=== PATIENT | female | born 1945 | race Caucasian/White ===

== ENCOUNTER → 2017-04-09 | Outpatient (CLI) | payer OTHER | END | disposition home or self-care (01) | DX: M16.11 Unilateral primary osteoarthritis, right hip (principal); R26.2 Difficulty in walking, not elsewhere classified; M25.551 Pain in right hip; M25.651 Stiffness of right hip, not elsewhere classified; M62.81 Muscle weakness (generalized); Z74.1 Need for assistance with personal care | CPT/HCPCS: 97150 GO; 97161 GP; 97165 GO; 97530 GP; G8978 GP; G8979 GP; G8980 GP; G8987 GO; G8988 GO; G8989 GO ==

== ENCOUNTER 2017-04-28 22:18 | Inpatient (IN) | payer OTHER ==
[~2017-04-28] VITALS: Ht 167.6 cm; Wt 66.0 kg
[~2017-04-28 22:18] MED LIST: MESTINON180 MG PO; MESTINON60 MG PO; SYSTANE BALANCE10 ML BOTH EYES; TRAZODONE HCL50 MG PO; ZOLOFT100 MG PO
[2017-04-29 05:57] VITALS: BP 160/71
[2017-04-29 09:56] LABS: HEMATOCRIT 37.8 % (36.0-46.0); MCH 30.4 PG (29.0-34.0); MCV 98.2 FL (83-99); PLATELET COUNT 192 K/uL (156-360); RBC DIS.WIDTH-CV 12.9 % (11.8-14.6); RBC DIS.WIDTH-SD 45.9 % (39-53); RED BLOOD COUNT 3.85 M/uL (3.80-5.20); WHITE BLOOD COUNT 8.5 K/uL (4.1-10.2)
[2017-04-29 09:57] LABS: HEMOGLOBIN 11.7 G/DL (11.9-15.5)
[2017-04-29 10:48] VITALS: BP 169/74
[2017-04-29 16:08] VITALS: BP 148/68
[2017-04-29 20:09] VITALS: BP 176/81
[2017-04-29 20:12] VITALS: BP 176/81
[2017-04-30] VITALS: BP 169/74
[2017-04-30 03:48] VITALS: BP 176/84
[2017-04-30 05:33] LABS: HEMATOCRIT 34.2 % (36.0-46.0); HEMOGLOBIN 10.9 G/DL (11.9-15.5); MCV 96.1 FL (83-99)
[2017-04-30 05:57] LABS: CHLORIDE 105 MEQ/L (99-109); GFR ESTIMATE (CALCULATED) 58 mL/min/; GLUCOSE 131 mg/dL (70-99); SODIUM 133 MEQ/L (136-147); UREA NITROGEN (BUN) 13 mg/dL (9-23)
[2017-04-30 07:55] VITALS: BP 164/78
[2017-04-30] MEDS ORDERED: LOVENOX40 MG/0.4 SC (09:04)
[2017-04-30] MEDS ORDERED: HYDROCODON-ACE1 EAC7 PO (09:04)
[2017-04-30 11:42] VITALS: BP 107/56
[2017-04-30 16:02] VITALS: BP 142/63
[2017-04-30 20:08] VITALS: BP 143/84
[2017-05-01] VITALS: BP 134/63
[2017-05-01 08:00] VITALS: BP 151/70
[2017-05-01 12:02] VITALS: BP 130/60
== END 2017-05-01 14:35 | disposition home health service (06) | DRG 470 ==
LOC: ENRESERV 22:18 → 2SOUTH 04-29 05:15 → 3WEST 04-29 10:28 → 2SOUTH 04-29 12:07 → 3WEST 05-01 14:35
PROVIDERS: Orthopaedic Surgery
PROC: 0SR902A Replacement of Right Hip Joint with Metal on Polyethylene Synthetic Substitute, Uncemented, Open Approach (ICD-10-PCS; principal; 2017-04-29)
DX: M16.11 Unilateral primary osteoarthritis, right hip (principal); G70.00 Myasthenia gravis without (acute) exacerbation; F32.9 Major depressive disorder, single episode, unspecified; Z90.710 Acquired absence of both cervix and uterus
CPT/HCPCS: 72170; 80048; 85014; 85018; 85027; J0131; J0690; J1100; J1170; J1650; J2250; J2405; J7050